=== PATIENT | male | born 1970 | race Caucasian/White ===

== ENCOUNTER 2018-06-11 07:58 | Day surgery (SDC) | payer OTHER ==
[~2018-06-11 07:58] MED LIST: Ringers Lactate 1,000 ML IV ONE
[2018-06-11] MEDS ORDERED: Ringers Lactate 1,000 ML IV ONE ×2 (08:11→10:35)
[2018-06-11] MEDS ORDERED: LIDOCAINE 2% MPF 5 ML VIAL ONE (08:18)
[2018-06-11] MEDS ORDERED: MIDAZOLAM HCL 2 MG/2 ML INJ ONE (08:18)
[2018-06-11] MEDS ORDERED: FENTANYL CITR 100 MCG/2 ML ONE ×2 (08:20→09:44)
[2018-06-11] MEDS ORDERED: PROPOFOL 200 MG/20 ML VIAL IV ONE (08:21)
[2018-06-11] MEDS ORDERED: ONDANSETRON HCL 40 MG/20 ML VIAL ONE (08:21)
[2018-06-11] MEDS: GENTAMICIN 100 MG/100 ML BAG 100 MG/100 ML BAG IV ONE ×2 (08:31→09:41)
[2018-06-11] MEDS ORDERED: BUPIVACA 0.25%/EPI 0.0005%/PF 30 ML VIAL ONE (08:57)
[2018-06-11] MEDS ORDERED: CEFAZOLIN/SWI 1gm 1 GM/10 ML SYR ONE (09:25)
[2018-06-11] MEDS ORDERED: GLYCOPYRROLATE 0.2 MG/ML SYR ONE (09:49)
[2018-06-11] MEDS ORDERED: EPHEDRINE SULF 50 MG/10 ML SYR ONE (10:34)
--- NOTE | 2018-06-11 11:10 | P.OP ---
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
[2018-06-11] MEDS ORDERED: ONDANSETRON 4 MG/2 ML VIAL ONE (11:26)
[2018-06-11] MEDS ORDERED: DEXAMETHASONE 10 MG/ML VIAL ONE (11:35)
[2018-06-11] MEDS ORDERED: KETOROLAC 30 MG/ML INJ ONE (11:47)
[2018-06-11] MEDS: MEPERIDINE HCL 50 MG/ML AMP ONE ×3 (11:52→12:04)
[2018-06-11] MEDS ORDERED: CODEINE 30MG/APAP 300MG TAB ONE (12:57)
--- NOTE | 2018-06-11 16:28 | OP ---
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 Procedure Performed: Exploration of the right arm mass. Anesthesia: MAC plus local with 0.25% Marcaine with epinephrine. Estimated Blood Loss: Less than 2 cc. Specimen: None. Findings: Nerves splayed around investing mass, unable to be safely at this time. As such , no mass was removed. Nerve stimulator used to test this, which was consistent with splayed nerves investing this mass. Complications: None. Disposition: Transferred to recovery room in good condition. The patient's hand was opening and erica sing normally in the recovery room after the procedure. 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 No hand deficits were appreciated in the motor test in the recovery room. Procedure In Detail: After informed was obtained, the patient was brought to the operating room, pre pped and draped in the usual sterile fashion. After adequate anesthesia was achieved, a linear incis ion was made on the left bicipital groove area. The space between the biceps and the triceps was inf iltrated with 0.25% Marcaine and a 15-blade was used to make approximately 4 cm incision overlying th e palpable mass. Dissection continued down using low electrocautery set on the setting of 15 down th rough the subcutaneous tissues. I then used blunt dissection to dissect completely circumferentially around the mass and enter the outer sheath. It was noted to be investing a nerve, which was running both proximally and distally apparently through the mass and with nerve splaying over the top. At t his point, I opted to use the nerve stimulator to test each of these nerves over the top and when sti mulated with low voltage motor, the hand was noted to give motor feedback consistent with innervation . It was very low voltage and the motor function was minimal, however, this was concerning as the ne rves were splayed over the top of this structure. I felt it unsafe for me to proceed with attempting to dissect these nerves free from the underlying nerve sheath tumor without more specialized equipme nt and as such I opted to close the patient at this time after copiously irrigating and we will refer to a specialist with microsurgical experience to treat this further. I irrigated the incision copio usly and closed the subcutaneous layer with 3-0 Vicryl in an interrupted fashion and the skin was erica sed with a 4-0 Monocryl in a running fashion with Dermabond placed over top. The patient tolerated t he procedure well without evidence of complication and transferred to the PACU in good condition. Al l counts were correct at the case. 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 GARY/MAXI Voice ID: [id number] Report ID: [id number]
== END 2018-06-11 13:45 | disposition home or self-care (01) ==
LOC: OR 07:58
PROVIDERS: ATTEND Surgery
PROC: 0XJ Anatomical Regions, Upper Extremities, Inspection (ICD-10-PCS; principal; 2018-06-11 09:15)
DX: D36.12 Benign neoplasm of peripheral nerves and autonomic nervous system, upper limb, including shoulder (principal)
CPT/HCPCS: J0690; J1100; J1580; J2175; J2250; J2405; J3010